=== PATIENT | female | born 1980 | race Caucasian/White ===

== ENCOUNTER 2019-06-11 13:03 | Emergency (ER) | payer OTHER ==
[~2019-06-11] VITALS: Ht 152.4 cm; Wt 66.2 kg
[~2019-06-11 13:03] MED LIST: CODE1TAB37 PO; COLACE100 MG PO; IRON1 TAB PO; PRENATAL CAPLE1 EACH PO; PROCARDIA90 MG/BLIS PO; SINGULAIR10 MG
[2019-06-11] MEDS ORDERED: NORFLEX (13:56)
== END 2019-06-11 19:04 | disposition home or self-care (01) ==
LOC: ER 13:03
DX: M62.838 Other muscle spasm (principal); M50.20 Other cervical disc displacement, unspecified cervical region